=== PATIENT | male | born 2000 | race Caucasian/White ===

== ENCOUNTER 2023-04-03 12:27 | Emergency (ER) | payer SELFPAY ==
[2023-04-03 12:38] VITALS: BP 138/78; PULSE 99; RESP 17; TEMP 36.8; O2SAT 98; BMI 28.8
--- NOTE | 2023-04-03 14:19 | ED_ITS ---
HPI - Headache General: Chief Complaint: Headache Stated Complaint: lots balance , blury vison Time Seen by Provider: 04/03/23 13:37 Source: patient Mode of arrival: ambulatory Limitations: no limitations History of Present Illness: Patient is a 22-year-old male who presents to the emergency department complaining of an episode of dizziness and not feeling right this morning. Patient states he woke up with a sensation that his head was pounding and he felt off balance on his feet. He went to the bathroom and urinated and noticed his urine was dark. He states that he was able to ambulate normally and even drove himself to the gas station. He states that after drinking several glasses of water and a Gatorade he gradually began to feel better. He apparently went to the walk in clinic and was referred to the ED. He arrives stating he is here for precautionary purposes. States all symptoms have subsided apart from a headache that he rates at a 3/10. Denies any nausea, vomiting, dizziness, lightheadedness, blurred vision, or other neurological changes. He states that he has also not received much sleep lately, as his is . He denies any new stress in his life. Patient does not take medications for anything and does not regularly see a doctor. He recently finished a course of antibiotics for a spider bite. elicited complaint: headache Onset (ago): hour(s) Onset description: on awakening Location: generalized Severity: mild Quality & Timing: throbbing Exacerbating factors: none Relieving factors: other (Fluids) Context: occurred at rest Associated symptoms: Deny chest pain, confusion, fever(s), lightheadedness, nausea, rash, syncope or vomiting Treatments prior to arrival: none Review of Systems Const: Denies: fever(s) or chills Eyes: Denies: change in vision or blurry vision Card: Denies: chest pain, palpitations, irregular heart rhythm, lightheadedness, syncope or dyspnea on exertion Resp: Denies: dyspnea, productive cough or pain on inspiration GI: Denies: abdominal pain, nausea, vomiting, heartburn or diarrhea : Denies: difficulty urinating or dysuria Musc: Denies: neck pain, back pain or joint pain Skin/Breast: Denies: rash Neuro: Reports: headache(s), lack of coordination (improved/subsided now) and dizziness (subsided now); Denies: numbness in extremities, weakness in extremities, sensory changes, difficulty walking, frequent falls, vertigo, confusion, behavioral changes, Slurred speech present, difficulty communicating thoughts or seizure-like activity PFSH ED PFSH: Social History Smoking and tobacco status: current every day smoker Physical Exam Const: COMMON NORMALS: no acute distress, average body habitus, patient oriented x3, no limitations, healthy appearing, alert and well nourished GENERAL APPEARANCE: cooperative ORIENTATION/CONSCIOUSNESS: Yes awake, Yes oriented to person, Yes oriented to place and Yes oriented to time HENMT: COMMON NORMALS: normocephalic and atraumatic HEAD & SCALP: normal to inspection, normocephalic and atraumatic Eye: COMMON NORMALS: Equal, round and reactive pupils present and EOMs intact bilaterally GENERAL EYE: appearance normal, both eyes and all related structures and normal light reflex PUPIL: Yes Equal, round and reactive pupils present DIRECT OPHTHALMOSCOPY: Yes normal light reflex Neck/C-Spine: COMMON NORMALS: full ROM, no lymphadenopathy, supple and no meningeal signs Resp: COMMON NORMALS: normal respiratory effort and clear to auscultation bilaterally AUSCULTATION: clear to auscultation bilaterally Cardio: COMMON NORMALS: regular rate and regular rhythm RATE: regular rate RHYTHM: regular rhythm GI: COMMON NORMALS: Normal to inspection, nondistended, normoactive bowel sounds present, Soft to palpation, non-tender, No hepatosplenomegaly present and no masses PALPATION: Yes Soft to palpation and Yes No hepatosplenomegaly present : COMMON NORMALS: Yes no CVA tenderness BLADDER/KIDNEY EXAM: Yes no CVA tenderness Back/Pelvis: COMMON NORMALS: no CVA tenderness and thoracic and lumbar spine normal to inspection Extremity: COMMON NORMALS: normal to inspection GENERAL: Yes normal exam except as noted Neuro: ADALBERTO COMA SCALE: document GCS findings Adalberto coma scale eye opening: Spontaneous Adalberto coma scale verbal response: Orientated [place] coma scale motor response: Obey commands Adalberto coma scale total score: 15 COMMON NORMALS: patient oriented x3, CN's II-XII intact bilaterally, moves all extremities, no focal motor deficits, no sensory deficits noted and gait normal SENSORIUM/ORIENTATION: Yes alert, Yes oriented to person, Yes oriented to place and Yes oriented to time MENINGEAL SIGNS: Yes no meningeal signs COORDINATION/BALANCE: [id number] test normal SPEECH: speech normal GAIT: Yes Normal gait present MOTOR EXAM: 5/5 motor strength present throughout COORDINATION: [id number] test normal OTHER: No focal neurological deficit. Sensation to light touch intact and symmetrical. No facial droop. Alert and oriented x4. Skin: COMMON NORMALS: no rashes or lesions noted GENERAL SKIN EXAM: no rashes or lesions noted Course Vital Signs: Vital signs: Vital Signs Temperature 98.3 F 04/03/23 12:38 Pulse Rate 99 04/03/23 12:38 Respiratory Rate 17 04/03/23 12:38 Blood Pressure 138/78 04/03/23 12:38 Pulse Oximetry 98 04/03/23 12:38 Oxygen Delivery Me thod Room Air 04/03/23 12:38 MDM - Headache Medical Decision Making All patients symptoms have completely subsided apart from mild headache. He has a completely normal neurologic exam. Vital signs are stable. Based on history I suspect that symptoms could be related to dehydration. He states his urine is much marine photographer in color now than it was this morning after drinking a large amount of water and Powerade throughout the day today. At this time I feel comfortable discharging patient from the emergency department with return precautions. I do not feel he needs emergent labs or imaging at this time. Discharge Plan Discharge Patient Disposition: Home Clinical Impression: Headache Qualifiers: Headache type: unspecified Headache chronicity pattern: acute headache Intractability: not intractable Qualified Code(s): R51.9 - Headache, unspecified Condition: Stable Prescriptions: No Action mupirocin 2 % ointment 1 applic topical TID 10 Days Qty: 15 0RF sulfamethoxazole-trimethoprim [Bactrim DS] 800-160 mg tablet 2 tab PO Q12H 7 Days Qty: 28 0RF Discharge Orders: Discharge ED (Routine); Ordered 04/03/23 Ordered By: Maida Mendoza Referrals: Julia George FNP [Primary Care Provider] - Patient Instructions: Acute Headache (DC) Activity Restrictions/Additional Instructions: Please return to the emergency department if your headache worsens or you develop any symptoms of numbness tingling weakness or visual changes. Coding Level of Care Code ED Slurry Control Operator Helper for Contreras Harkins
[2023-04-03 14:45] VITALS: RESP 17
== END 2023-04-03 14:46 | disposition home or self-care (01) ==
PROVIDERS: Emergency Provider Physician Assistant; PCP Nurse Practitioner Family
DX: R51.9 Headache, unspecified (principal)
CPT/HCPCS: 99283

== ENCOUNTER 2023-04-06 02:00 | Emergency (ER) | payer SELFPAY ==
[2023-04-06 02:25] VITALS: BP 140/78; PULSE 72; RESP 16; TEMP 36.2; O2SAT 98; BMI 28.8
[2023-04-06 02:43] VITALS: BP 140/78; PULSE 71; O2SAT 93
--- NOTE | 2023-04-06 03:04 | CTR_ITS ---
PROCEDURE INFORMATION: Exam: CT Head Without Contrast Exam date and time: 04/06/2023 3:10 AM Age: 22 years old Clinical indication: Hemiplegia and hemiparesis; Nondominant left side; Flaccid; Additional info: Paresthesia L sided TECHNIQUE: Imaging protocol: Computed tomography of the head without contrast. Radiation optimization: All CT scans at this facility use at least one of these dose optimization techniques: automated exposure control; mA and/or kV adjustment per patient size (includes targeted exams where dose is matched to clinical indication); or iterative reconstruction. REPORTING DATA: Count of CT and Cardiac NM exams in prior 12 months: This patient has received 0 known CTs and 0 known cardiac nuclear medicine studies in the 12 months prior to the current study. COMPARISON: No relevant prior studies available. RADIATION DOSE METRICS: Total DLP (mGy-cm): 993.08 FINDINGS: Brain: No focal hemorrhage or midline shift is identified. Cerebral ventricles: No ventriculomegaly or evidence of acute hydrocephalus. Paranasal sinuses: The partially assessed sinuses are grossly clear. Mastoid air cells: Visualized mastoid air cells are well aerated. Bones/joints: No displaced skull fracture is noted. Soft tissues: Unremarkable. CT/CT head wo con* [id number] IMPRESSION: No acute intracranial abnormality.
[2023-04-06 03:27] VITALS: BP 107/74; PULSE 72; RESP 18; O2SAT 94
[2023-04-06] MEDS: sodium chloride 0.9% 1,000 ML 999 ML IV (03:27)
--- NOTE | 2023-04-06 03:28 | ECG_ITS ---
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 Measurements Intervals Etta Rate: 61 P: 25 KS: 174 QRS: 85 QRSD: 99 T: 67 QT: 411 QTc: 416 Interpretive Statements SINUS RHYTHM No previous ECG available for comparison Electronically Signed On 04-06-2023 12:09:44 CDT by Tamiko Ponce M.D. [email or web address]
[2023-04-06 03:33] LABS: Basophils # 0.1 10^3/uL (0.0-0.1); Basophils % 1.3 %; Eosinophils # 0.2 10^3/uL (0.0-0.8); Hematocrit 39.6 % (42.0-52.0); Hemoglobin 13.5 g/dL (11.7-16.6); Lymphocytes # 1.6 10^3/uL (0.8-4.8); Mean Corpuscular HGB Conc 34.1 g/dL (30.0-36.0); Mean Corpuscular Hemoglobin 30.5 pg (28.0-34.0); Mean Corpuscular Volume 89.6 fl (80-94); Monocytes # 0.6 10^3/uL (0.2-0.9); Monocytes % 12.6 %; Neutrophils # 2.32 10^3/uL (1.8-7.7); Neutrophils % 48.7 %; Nucleated Red Blood Cells % 0 %; Platelet Count 224 10^3/cmm (130-400); Red Blood Count 4.42 10^6/uL (4.1-5.3); White Blood Count 4.8 10^3/uL (4.0-10.0)
[2023-04-06 03:52] LABS: Alanine Aminotransferase 27 U/L (0-41); Albumin Level 4.1 g/dL (3.5-5.2); Alkaline Phosphatase 72 U/L (40-130); Anion Gap 11.2 (5-19); Aspartate Amino Transferase 22 U/L (0-40); Blood Urea Nitrogen 10 mg/dL (6-20); Calcium 8.9 mg/dL (8.5-10.5); Carbon Dioxide 27 mmol/L (22-29); Chloride 102 mmol/L (98-107); Creatine Phosphokinase 136 U/L (39-308); Globulin 2.3 g/dL (1.3-4.6); Glomerular Filtration Rate 91.8 mL/min (90-130); Glucose 100 mg/dL (65-115); Magnesium 2.1 mg/dL (1.7-2.3); Osmolality Calculated 281 mOsm/kg (285-295); Potassium 4.2 mmol/L (3.5-5.1); Sodium 136 mmol/L (136-145); Total Bilirubin 0.2 mg/dL (0.15-1.2); Total Protein 6.4 g/dL (6.6-8.7)
[2023-04-06 04:29] VITALS: BP 107/74; PULSE 69; O2SAT 95
[2023-04-06 04:30] VITALS: BP 107/74; PULSE 69; O2SAT 95
[2023-04-06 04:44] LABS: Add Urine Culture? No; Add Urine Microscopic? YES; Bacteria Urine TRACE /hpf; Bilirubin Urine Neg (Negative); Blood Urine 2+ (Negative); Glucose Urine UA Norm (Normal); Ketones Urine Negative (Negative); Leukocyte Esterase Urine Trace (Negative); Nitrate Urine Negative (Negative); Protein Urine Neg (Negative); Squamous Epithelial Cell Urine 0-4 /hpf (0-5); Urine Appearance Clear (CLEAR); Urine Color Yellow (Yellow); Urobilinogen Urine 8 mg/dL (Negative); WBC Urine 0-4 /hpf (0-5); pH Urine 7 (5-7)
--- NOTE | 2023-04-06 16:34 | W.ED.GENADLT ---
HPI - General Adult General: Chief complaint: General Medical Stated complaint: left arm, calf muscles are partially numb Time Seen by Provider: 04/06/23 02:43 History of Present Illness: 22 year old male who was seen a few days ago with headache, and dizziness. This seemed to resolve. This evening, he complained of again, headache, with left arm and left leg partial numbness. No weakness. He says that the numbness temporarily moved to the right leg as well. Symptoms are nearly resolved at this point. He was concerned, as this was the second time he's had neurological problems in the past few days. No recent fever. No neck pain. No vomiting. No vision changes. Associated symptoms: Reports headache(s); Deny chest pain, dyspnea, nausea, rash, palpitations or vomiting Review of Systems Const: Denies: fever(s) Eyes: Denies: change in vision or blurry vision ENMT: Denies: throat pain Card: Denies: chest pain or palpitations Resp: Denies: dyspnea or productive cough GI: Denies: abdominal pain, nausea or vomiting Musc: Denies: neck pain Skin/Breast: Denies: rash Neuro: Reports: headache(s), numbness in extremities and sensory changes; Denies: weakness in extremities, difficulty walking, dizziness, Slurred speech present or difficulty communicating thoughts PFSH ED PFSH: Social History Smoking and tobacco status: current every day smoker Physical Exam Const: COMMON NORMALS: no acute distress and alert GENERAL APPEARANCE: cooperative; not ill appearing and not frail appearing HENMT: COMMON NORMALS: normocephalic, atraumatic and Normal external nose present HEAD & SCALP: normocephalic and atraumatic FACE & SINUS: normal facial exam and face symmetric NOSE: Normal external nose present Eye: COMMON NORMALS: Equal, round and reactive pupils present and EOMs intact bilaterally PUPIL: Yes Equal, round and reactive pupils present Neck/C-Spine: GENERAL: Yes trachea midline Chest: CHEST: Yes Symmetrical chest wall rise Resp: COMMON NORMALS: normal respiratory effort, No retractions, No use of accessory muscles and clear to auscultation bilaterally AUSCULTATION: clear to auscultation bilaterally Cardio: COMMON NORMALS: regular rate and regular rhythm RATE: regular rate RHYTHM: regular rhythm GI: COMMON NORMALS: Normal to inspection, nondistended, normoactive bowel sounds present Extremity: COMMON NORMALS: no pedal edema Neuro: HERMINIO COMA SCALE: document GCS findings [place] coma scale eye opening: Spontaneous Herminoi coma scale verbal response: Orientated Herminio coma scale motor response: Obey commands [place] coma scale total score: 15 SENSORIUM/ORIENTATION: Yes alert CRANIAL NERVES: Yes CN normal except as noted SPEECH: speech normal SENSORY EXAM: Yes extremities (intact) MOTOR EXAM: Pronator motor function not present and Normal motor muscle tone present throughout Psych: COMMON NORMALS: speech normal SPEECH: Yes normal speech Skin: COMMON NORMALS: no rashes or lesions noted GENERAL SKIN EXAM: no rashes or lesions noted Course Vital Signs: Vital signs: Vital Signs Temperature 97.1 F L 04/06/23 02:25 Pulse Rate 69 04/06/23 04:30 Respiratory Rate 18 04/06/23 03:27 Blood Pressure 107/74 04/06/23 04:30 Pulse Oximetry 95 04/06/23 04:30 Oxygen Delivery Me thod Room Air 04/06/23 03:[address] [facility] - General Adult Medical Decision Making Proceeded with work up as this is the second time he has complained of neurological problems. Workups is essentially normal period CBC and BMP are unremarkable. Urinalysis shows minimum blood. Head CT shows no acute abnormality. Symptoms are resolved at this point. He will be discharged. Outpatient follow up. Lab Data 04/06/23 03:18 04/06/23 03:[address] 04/06/23 03:04 IMPRESSION: No acute intracranial abnormality. Laboratory Results WBC 4.8 10^3/uL (4.0-10.0) 04/06/23 03:18 RBC 4.42 10^6/uL (4.1-5.3) 04/06/23 03:18 Hgb 13.5 g/dL (11.7-16.6) 04/06/23 03:18 Hct 39.6 % (42.0-52.0) L 04/06/23 03:18 MCV 89.6 fl (80-94) 04/06/23 03:18 MCH 30.5 pg (28.0-34.0) 04/06/23 03:18 MCHC 34.1 g/dL (30.0-36.0) 04/06/23 03:18 RDW 12.0 % (12.1-15.1) L 04/06/23 03:18 Plt Count 224 10^3/cmm (130-400) 04/06/23 03:18 MPV 9.0 fL (7.4-10.4) 04/06/23 03:18 Neut % (Auto) 48.7 % 04/06/23 03:18 Lymph % (Auto) 33.0 % 04/06/23 03:18 [place] % (Auto) 12.6 % 04/06/23 03:18 Eos % (Auto) 4.0 % 04/06/23 03:18 Baso % (Auto) 1.3 % 04/06/23 03:18 Neut # (Auto) 2.32 10^3/uL (1.8-7.7) 04/06/23 03:18 Lymph # (Auto) 1.6 10^3/uL (0.8-4.8) 04/06/23 03:18 [place] # (Auto) 0.6 10^3/uL (0.2-0.9) 04/06/23 03:18 Eos # (Auto) 0.2 10^3/uL (0.0-0.8) 04/06/23 03:18 Baso # (Auto) 0.1 10^3/uL (0.0-0.1) 04/06/23 03:18 Nucleated RBC % (auto) 0 % 04/06/23 03:18 Nucleated RBCs # 0.0 /100WBC 04/06/23 03:18 Sodium 136 mmol/L (136-145) 04/06/23 03:18 Potassium 4.2 mmol/L (3.5-5.1) 04/06/23 03:18 Chloride 102 mmol/L (98-107) 04/06/23 03:18 Carbon Dioxide 27 mmol/L (22-29) 04/06/23 03:18 Anion Gap 11.2 (5-19) 04/06/23 03:18 BUN 10 mg/dL (6-20) 04/06/23 03:18 Creatinine 1.0 mg/dL (0.7-1.2) 04/06/23 03:18 GFR Calculation 91.8 mL/min (90-130) 04/06/23 03:18 Glucose 100 mg/dL (65-115) 04/06/23 03:18 Calculated Osmolality 281 mOsm/kg (285-295) L 04/06/23 03:18 Calcium 8.9 mg/dL (8.5-10.5) 04/06/23 03:18 Magnesium 2.1 mg/dL (1.7-2.3) 04/06/23 03:18 Total Bilirubin 0.2 mg/dL (0.15-1.2) 04/06/23 03:18 AST 22 U/L (0-40) 04/06/23 03:18 ALT 27 U/L (0-41) 04/06/23 03:18 Alkaline Phosphatase 72 U/L (40-130) 04/06/23 03:18 Creatine Kinase 136 U/L (39-308) 04/06/23 03:18 Total Protein 6.4 g/dL (6.6-8.7) L 04/06/23 03:18 Albumin 4.1 g/dL (3.5-5.2) 04/06/23 03:18 Globulin 2.3 g/dL (1.3-4.6) 04/06/23 03:18 Urine Color Yellow (Yellow) 04/06/23 04:09 Urine Appearance Clear (CLEAR) 04/06/23 04:09 Urine pH 7 (5-7) 04/06/23 04:09 Ur Specific [place] 1.010 (1.005-1.030) 04/06/23 04:09 Urine Protein Neg (Negative) 04/06/23 04:09 Urine Glucose (UA) Norm (Normal) 04/06/23 04:09 Urine Ketones Negative (Negative) 04/06/23 04:09 Urine Blood 2+ (Negative) H 04/06/23 04:09 Urine Nitrate Negative (Negative) 04/06/23 04:09 Urine Bilirubin Neg (Negative) 04/06/23 04:09 Urine Urobilinogen 8 mg/dL (Negative) H 04/06/23 04:09 Ur Leukocyte Esterase Trace (Negative) H 04/06/23 04:09 Urine RBC 5-10 /hpf (0-2) H 04/06/23 04:09 Urine WBC 0-4 /hpf (0-5) H 04/06/23 04:09 Ur Squamous Epith Cells 0-4 /hpf (0-5) H 04/06/23 04:09 Amorphous Sediment Not Reportable 04/06/23 04:09 Urine Bacteria Trace /hpf (NONE) 04/06/23 04:09 Discharge Plan Discharge Patient Disposition: Home Clinical Impression: Headache, Paresthesia of left arm and leg Condition: Stable Prescriptions: No Action mupirocin 2 % ointment 1 applic topical TID 10 Days Qty: 15 0RF sulfamethoxazole-trimethoprim [Bactrim DS] 800-160 mg tablet 2 tab PO Q12H 7 Days Qty: 28 0RF Discharge Orders: Discharge ED (Routine); Ordered 04/06/23 Ordered By: Enmanuel Quezada Patient Instructions: Acute Headache (ED), Paresthesia (ED), Opioid Safety, Pain Management Activity Restrictions/Additional Instructions: Return for return of numbness or tingling, weakness, vision changes, worsening headache, mental status changes, any other concerning symptoms. Coding Level of Care Code ED Rack Maker for Contreras Harkins
--- NOTE | 2023-04-08 10:18 | DCPLANNER ---
city maintenance manager had message to speak with patient about getting established with a primary care physician. Patient stated that he would call immigration case manager back tomorrow, he was at an appointment.
== END 2023-04-06 04:36 | disposition home or self-care (01) ==
PROVIDERS: Emergency Provider Emergency Medicine
DX: R51.9 Headache, unspecified (principal); R20.2 Paresthesia of skin
CPT/HCPCS: 36415; 70450; 80053; 81001; 82550; 83735; 85025; 93005; 99284; J7030